=== PATIENT | male | born 1945 | race Caucasian/White ===

== ENCOUNTER 2024-01-28 07:52 | Day surgery (SDC) | payer OTHER ==
[~2024-01-28] VITALS: Ht 177.8 cm; Wt 88.7 kg
[~2024-01-28 07:52] MED LIST: ATROVENT HFA12.9 GM; AZELASTINE137 MCG/01; Aspir 8181 MG PO; Balanced Salt Epinephrine Irrigation Solution 500 mL IR SCH; FLONASE ALLERG9.9 M2; Flonase 0.05% N16 GM; Lidocaine HCl/Pf 1% 5 ML VIAL ONE; Lidocaine HCl/Pf 1% 5 ML VIAL XX SCH; Moxifloxacin HCL 0.5 MG/0.1 ML 0.4MLSYR RIGHTEYE SCH; NS 500 ML IV ONE; PHENYLEPHRINE\\TROPICAMIDE\\TETRACAINE OPHTHALMIC DILATING SOLN RIGHTEYE PRN; Povidone-Iodine 450 DROP/30 ML Solution RIGHTEYE SCH; REVATIO20 MG PO; TAMS.4ER; Triamcinolone Inj Susp 40 MG / ML 1ML Vial INJ SCH; Triamcinolone Inj Susp 40 MG / ML 1ML Vial ONE
[2024-01-28] MEDS ORDERED: NS 500 ML IV ONE (09:02)
[2024-01-28] MEDS ORDERED: Midazolam HCl 1MG / ML 2ML Vial ONE ×2 (09:14→09:27)
[2024-01-28] MEDS ORDERED: FentaNYL Citrate 50 MCG/ML 2 ML Injection ONE (10:15)
[2024-01-28 10:54] VITALS: BP 129/92
== END 2024-01-28 10:53 | disposition home or self-care (01) ==
LOC: ORSCSDS 07:52
PROVIDERS: Ophthalmology
PROC: 08RJ3JZ Replacement of Right Lens with Synthetic Substitute, Percutaneous Approach (ICD-10-PCS; principal; 2024-01-28 10:00)
DX: H25.813 Combined forms of age-related cataract, bilateral (principal); J44.9 Chronic obstructive pulmonary disease, unspecified; I10 Essential (primary) hypertension; Z87.891 Personal history of nicotine dependence; E78.5 Hyperlipidemia, unspecified; I27.20 Pulmonary hypertension, unspecified; Z79.82 Long term (current) use of aspirin; Z79.899 Other long term (current) drug therapy
CPT/HCPCS: J2001; J2250; J3010; J3301; J7040; V2632

== ENCOUNTER 2024-02-04 08:43 | Day surgery (SDC) | payer OTHER ==
[~2024-02-04] VITALS: Ht 180.3 cm; Wt 89.3 kg
[~2024-02-04 08:43] MED LIST changes: -Lidocaine HCl/Pf 1% 5 ML VIAL ONE; +Moxifloxacin HCL 0.5 MG/0.1 ML 0.4MLSYR LEFTEYE SCH; -Moxifloxacin HCL 0.5 MG/0.1 ML 0.4MLSYR RIGHTEYE SCH; +PHENYLEPHRINE\\TROPICAMIDE\\TETRACAINE OPHTHALMIC DILATING SOLN LEFTEYE PRN; -PHENYLEPHRINE\\TROPICAMIDE\\TETRACAINE OPHTHALMIC DILATING SOLN RIGHTEYE PRN; +Povidone-Iodine 450 DROP/30 ML Solution LEFTEYE SCH; -Povidone-Iodine 450 DROP/30 ML Solution RIGHTEYE SCH
[2024-02-04] MEDS ORDERED: NS 500 ML IV ONE (09:44)
[2024-02-04] MEDS ORDERED: Midazolam HCl 1MG / ML 2ML Vial ONE (09:59)
--- NOTE | 2024-02-04 10:41 | NUR ---
02/04/24 1041 Lance Zavaleta PT DENIED CP, DIZZINESS, SOB, NAUSEA, AND OTHER CARDIAC SYMPTOMS PRIOR TO D/C. NOEN WERE OBSERVED. HR REGULAR, RADIAL PULSE PALPATED MANUALLY. PT STATES HE WAS TENSE IN PRE-OP, MORE RELAXED IN SDU.
[2024-02-04 11:32] VITALS: BP 133/71
== END 2024-02-04 10:35 | disposition home or self-care (01) ==
LOC: ORSCSDS 08:43
PROVIDERS: Ophthalmology
PROC: 08RK3JZ Replacement of Left Lens with Synthetic Substitute, Percutaneous Approach (ICD-10-PCS; principal; 2024-02-04 10:30)
DX: H25.812 Combined forms of age-related cataract, left eye (principal); Z96.1 Presence of intraocular lens; E78.5 Hyperlipidemia, unspecified; I27.20 Pulmonary hypertension, unspecified; Z87.891 Personal history of nicotine dependence; Z79.82 Long term (current) use of aspirin; Z79.899 Other long term (current) drug therapy
CPT/HCPCS: J2250; J3301; J7040; V2632

== ENCOUNTER 2024-06-24 08:45 | Day surgery (SDC) | payer OTHER ==
[2024-06-24] VITALS (8 sets, daily range): BP systolic 134–176; BP diastolic 65–93
[~2024-06-24] VITALS: Ht 182.9 cm; Wt 90.0 kg
[~2024-06-24 08:45] MED LIST changes: -Balanced Salt Epinephrine Irrigation Solution 500 mL IR SCH; +CeFAZolin Sodium 2,000 MG VIAL ONE; +CeFAZolin Sodium 2,000 MG in NS 100 ML IV SCH; +Lactated Ringer's 1,000 ML IV SCH; -Lidocaine HCl/Pf 1% 5 ML VIAL XX SCH; -Moxifloxacin HCL 0.5 MG/0.1 ML 0.4MLSYR LEFTEYE SCH; -NS 500 ML IV ONE; -PHENYLEPHRINE\\TROPICAMIDE\\TETRACAINE OPHTHALMIC DILATING SOLN LEFTEYE PRN; -Povidone-Iodine 450 DROP/30 ML Solution LEFTEYE SCH; -Triamcinolone Inj Susp 40 MG / ML 1ML Vial INJ SCH; -Triamcinolone Inj Susp 40 MG / ML 1ML Vial ONE
[2024-06-24] MEDS ORDERED: Bupivacaine 0.5% HCl 5 MG/ML 30MLVIAL ONE (08:58)
--- NOTE | 2024-06-24 09:23 | NUR ---
History, Chart, Medications and Allergies reviewed before start of procedure. History, Chart, Medications and Allergies reviewed before start of procedure. Patient confirms NPO status and agrees with scheduled surgery. PT BELONGINGS BAG PLACED UNDER GURNEY. PT GLASSES PLACED IN PACU.
[2024-06-24] MEDS ORDERED: FentaNYL Citrate 50 MCG/ML 2 ML Injection ONE ×2 (09:44→10:09)
[2024-06-24] MEDS ORDERED: Etomidate 2MG / ML 10ML Vial ONE (09:44)
[2024-06-24] MEDS ORDERED: SuccINYLCHOLINE Chloride 100 MG/5 ML 5MLSYR ONE (09:45)
[2024-06-24] MEDS ORDERED: Dexamethasone Sod Phos 10 MG/ML 1ML VIAL ONE (09:55)
[2024-06-24] MEDS ORDERED: Ondansetron HCl 2 MG / ML 2ML Vial ONE (09:55)
[2024-06-24] MEDS ORDERED: Rocuronium Bromide 10 MG/ML 5ML Injection IV ONE ×2 (09:55→10:40)
[2024-06-24] MEDS ORDERED: Sugammadex Sodium 200 MG/2ML SDV (100 MG/ML) ONE (11:01)
[2024-06-24] MEDS ORDERED: HYDROcodone 5-APAP 325 TAB PO PRN (11:30)
--- NOTE | 2024-06-24 12:24 | NUR ---
Patient up to Ambulate independently. Gait steady. UP TO BR ABLE TO VOID W/O DIFFICULTY Discharge instructions reviewed with patient. Patient verbalizes understanding. Copy given to patient to take home. Discharged via wheelchair to private car for ride home.
== END 2024-06-24 12:20 | disposition home or self-care (01) ==
LOC: ORSCMMR 08:45 → ORD 09:45 → ORSCMMR 09:45 → ORD 10:15 → ORSCMMR 12:20
PROVIDERS: Surgery
PROC: 0YU54JZ Supplement Right Inguinal Region with Synthetic Substitute, Percutaneous Endoscopic Approach (ICD-10-PCS; principal; 2024-06-24 09:45)
PROC: 8E0W4CZ Robotic Assisted Procedure of Trunk Region, Percutaneous Endoscopic Approach (ICD-10-PCS; principal; 2024-06-24 09:45)
DX: K40.90 Unilateral inguinal hernia, without obstruction or gangrene, not specified as recurrent (principal); G47.33 Obstructive sleep apnea (adult) (pediatric); Z79.82 Long term (current) use of aspirin; E78.2 Mixed hyperlipidemia; N40.0 Benign prostatic hyperplasia without lower urinary tract symptoms; Z87.891 Personal history of nicotine dependence; Z79.899 Other long term (current) drug therapy
CPT/HCPCS: A9270; C1781; J0330; J0690; J1100; J2405; J3010; J7120